=== PATIENT | female | born 1960 | race Caucasian/White ===

== ENCOUNTER 2017-02-22 00:32 | Inpatient (IN) | payer OTHER ==
[~2017-02-22] VITALS: Ht 177.8 cm; Wt 86.2 kg
--- NOTE | 2017-02-22 00:48 | NUR ---
56YO FEMALE TO RM 4 VIA AMB W/CO ABD PAIN, VOMITING "ALL DAY" DENIES ANY DIARRHEA. HX HERNIA SURG 4YRS AGO
--- NOTE | 2017-02-22 00:59 | ED GI/GU/ABDOMINAL COMPLAINT ---
History of Present Illness General Chief Complaint: Abdominal Pain/Flank Pain Stated Complaint: BIBA,ABD PAIN Source: patient, EMS Exam Limitations: clinical condition Allergies Coded Allergies: NO KNOWN ALLERGIES (12/22/12) Reconcile Medications Amoxicillin/Clavulanate Potass (Amox-Clav 875-125 MG Tablet) 875 MG-125 MG TABLET 1 TAB PO Q12 Diverticulitis Take 2 pills a day for 13 days to finish a total of 14 days of antibiotics in and out of hospital Gabapentin (Neurontin) 400 MG CAPSULE 1 CAP PO TID PAIN (Reported) Nebivolol HCl (Bystolic) 10 MG TABLET 1 TAB PO DAILY HTN (Reported) Omeprazole 40 MG CAPSULE.DR 1 CAP PO DAILY GERD (Reported) Oxycodone HCl/Acetaminophen (Percocet 7.5-325 MG Tablet) 7.5 MG-325 MG TABLET 1 TAB PO TID PAIN (Reported) Trazodone HCl 100 MG TABLET 1 TAB PO QPM SLEEP (Reported) Triage Note: 56YO FEMALE TO 4 VIA AMB W/CO ABD PAIN, VOMITING "ALL DAY" DENIES ANY DIARRHEA. HX HERNIA SURG 4YRS AGO Triage Nurses Notes Reviewed? yes ? N Is pt currently ? No HPI: 56-year-old female with history of rheumatoid arthritis on Percocet, history of hiatal hernia repair by Dr. Mccord 4 years ago presents to the ER with chief complaint of abdominal pain which started left lower quadrant 2 days ago. Since that time she has been having bilious emesis. Unable to tolerate any by mouth. I able to keep down her regular medications. Patient states I am so sick. Denies any fever or chills. Last bowel movement was yesterday which was small. (OLINDA JACKMAN,JONNY) Vital Signs & Intake/Output Vital Signs & Intake/Output ED Intake and Output 07/ 0000 07/ 1200 Intake Total 1100 Output Total 650 900 Balance 450 -900 Intake, IV 200 Intake, Oral 900 Number 0 2 Bowel Movements Output, Urine 650 900 Past History Travel History Traveled to [place] past 21 day No Medical History Any Pertinent Medical History? see below for history Cardiovascular: hypertension Gastrointestinal: HERNIA Musculoskeletal: rheumatoid arthritis History of MRSA: No History of VRE: No History of CDIFF: No Pneumonia Vaccine: 05/12/12 Influenza Vaccine: 05/21/13 Surgical History Surgical History: HIATAL HERNIA REPAIR Psychosocial History Who do you live with Patient/Self Services at Home None What is your primary language Swedish Tobacco Use: Refused to answer Family History Hx Contributory? No (OLINDA JACKMAN,JONNY) Review of Systems Review of Systems Constitutional: Denies: chills, fever. EENTM: Reports: no symptoms. Respiratory: Denies: hemoptysis, short of breath. Cardiovascular: Denies: chest pain. GI: Reports: abdominal pain, nausea, vomiting. Genitourinary: Denies: discharge, dysuria. Musculoskeletal: Reports: no symptoms. Skin: Reports: no symptoms. Neurological/Psychological: Reports: no symptoms. Hematologic/Endocrine: Denies: bruising, bleeding, polyuria, polydipsia. Immunologic/Allergic: Denies: splenectomy. All Other Systems: Reviewed and Negative (OLINDA JACKMAN,JONNY) Physical Exam Physical Exam General Appearance: well developed/nourished, alert, awake, anxious, mild distress, moderate distress Head: atraumatic, normal appearance Eyes: Bilateral: normal appearance, PERRL, EOMI. Ears, Nose, Throat, Mouth: hearing grossly normal, moist mucous membrane Respiratory: normal breath sounds, chest non-tender, no respiratory distress Cardiovascular: tachycardia Gastrointestinal: normal bowel sounds, soft, tenderness (LLQ) Extremities: normal range of motion Neurologic/Psych: no motor/sensory deficits, awake, alert, oriented x 3 Skin: normal color, warm/dry (OLINDA JACKMAN,JONNY) Core Measures ACS in differential dx? No Severe Sepsis Present: No Septic Shock Present: No (MALIKA JACKMAN,CHLOE Modi) Progress Differential Diagnosis: bowel obstruction, kidney stone, ovarian cyst, UTI/pyelo Diagnostic Imaging: Viewed by Me: CT Scan. Discussed w/RAD: CT Scan. Radiology Impression: PATIENT: SARAH SHANNON PRESENT AGE: 56 PATIENT ACCOUNT NO: [id number] : 60 LOCATION: [facility] ORDERING PHYSICIAN: JONNY PRAKASH MD SERVICE DATE: 02/22/17 EXAM TYPE: CAT - CT ABD & PELVIS W IV CONTRAST EXAMINATION: CT ABDOMEN AND PELVIS WITH CONTRAST CLINICAL INFORMATION: Left lower quadrant pain. Vomiting for 2 days, bilious emesis COMPARISON: None TECHNIQUE: Multidetector volumetric imaging was performed of the abdomen and pelvis after the IV administration of 95 mL of Optiray 320 intravenous contrast. Sagittal and coronal reformatted images were obtained on the technologist's workstation. DLP: 410.41 mGy-cm FINDINGS: LUNG BASES: Large hiatal hernia. No infiltrate or pleural effusion. LIVER, GALLBLADDER, AND BILIARY TREE: Small scattered hypodensities in liver likely hepatic cysts. No intrahepatic bile duct dilatation. The gallbladder is unremarkable with no evidence of radiopaque gallstones, gallbladder wall thickening, or obvious pericholecystic inflammatory changes. Extrahepatic CBD measures 5 mm. PANCREAS: Unremarkable. SPLEEN: Unremarkable. ADRENAL GLANDS: Unremarkable. KIDNEYS AND URETERS: The kidneys are normal in size, shape, and attenuation. No hydronephrosis, hydroureter, or calculi seen. No perinephric stranding. BLADDER: Unremarkable. GASTROINTESTINAL TRACT: Marked diverticulosis of the left colon and sigmoid. There is mild diffuse bowel wall thickening of the sigmoid colon there is no significant pericolonic edema. Cannot exclude a mild diverticulitis. There is no bowel obstruction. Scattered stool in the colon. The appendix is normal. Small bowel loops are normal. ABDOMINAL WALL: No significant hernia is appreciated. LYMPH NODES: Normal. VASCULAR: Atherosclerotic vascular calcifications in abdomen pelvis. No aneurysm of the aorta. PELVIC VISCERA: Uterus is anteverted. No adnexal abnormality. OSSEOUS STRUCTURES: Mild degenerative spondylosis of the spine. IMPRESSION: 1. Diverticulosis of the colon. Mild bowel wall thickening at the sigmoid colon. There is no significant edema though in the surrounding pericolonic fat. Cannot exclude a mild diverticulitis however. 2. Large hiatal hernia. DICTATED BY: MARYCRUZ BARRIOS MD DATE/TIME DICTATED:02/22/17227 BOILER INSTALLER:CATHY DATE/TIME TRANSCRIBED:02/22/17227 CONFIDENTIAL, DO NOT COPY WITHOUT APPROPRIATE AUTHORIZATION. <Electronically signed in Other Vendor System> SIGNED BY: MARYCRUZ BARRIOS MD 02/22/17236 Initial ED EKG: SINUS @ 66 BPM Hand-Off Endorsed To: MALIKA JACKMAN,CHLOE Modi Endorsed Time: 704 Pending: other (PO CHALLENGE) (JONNY PRAKASH MD) Plan of Care: Orders Procedure Date/time Status Low Fiber Diet 02/23 B Active Discharge Patient 02/23 UNK Active Comments: Patient continues to have severe pain in the left lower quadrant. At this point the patient will be admitted for IV antibiotics for sigmoid diverticulitis. (CHLOE DALY MD) Departure Departure Condition: Stable Clinical Impression Primary Impression: Diverticulitis Referrals: MYRA MURRY MD (PCP/Family) GA ALBERT MD Additional Instructions: TAKE THE CIPRO, FLAGYL AND ZOFRAN DIRECTED. FOLLOW UP WITH DR ALBERT IN THE OFFICE AFTER YOUR COURSE OF ANTIBIOTICS. RETURN SOONER FOR ANY WORSENING SYMPTOMS. Departure Forms: Customer Survey General Discharge Information Prescriptions: Current Visit Scripts Amoxicillin/Clavulanate Potass (Amox-Clav 875-125 MG Tablet) 1 TAB PO Q12 #26 TAB Take 2 pills a day for 13 days to finish a total of 14 days of antibiotics in and out of hospital (JONNY PRAKASH MD) Departure Disposition: STILL A PATIENT Admission Note Spoke With: LAWSON OLSON MD Documentation of Exam: Documentation of any treatments & extenuating circumstances including Concerns Regarding Discharge (functional status, medication knowledge or non-compliance, living conditions, etc.) that warrant an admission rather than observation: [ CLEAR LIQUIDS, IV ABX, GASTROENTEROLOGY CONSULTATION, IV FLUIDS, PAIN CONTROL] (CHLOE DALY MD) CHLOE DALY MD Endorsed Time: 704 Pending: other (PO CHALLENGE) (JONNY PRAKASH MD) Comments: Patient continues to have severe pain in the left lower quadrant. At this point the patient will be admitted for IV antibiotics for sigmoid diverticulitis. (CHLOE DALY MD) Departure Departure Condition: Stable Clinical Impression Primary Impression: Diverticulitis Referrals: MYRA MURRY MD (PCP/Family) GA ALBERT MD Additional Instructions: TAKE THE CIPRO, FLAGYL AND ZOFRAN DIRECTED. FOLLOW UP WITH DR ALBERT IN THE OFFICE AFTER YOUR COURSE OF ANTIBIOTICS. RETURN SOONER FOR ANY WORSENING SYMPTOMS. Departure Forms: Customer Survey General Discharge Information Prescriptions: Current Visit Scripts Ciprofloxacin HCl (Cipro) 1 TAB PO BID #20 TAB Metronidazole (Flagyl) 1 TAB PO 4 TIMES/DAY #40 TAB Ondansetron (Zofran Odt) 1 TAB PO Q6 PRN NAUSEA #20 TAB (JONNY PRAKASH MD) Departure Disposition: STILL A PATIENT Admission Note Spoke With: LAWSON OLSON MD Documentation of Exam: Documentation of any treatments & extenuating circumstances including Concerns Regarding Discharge (functional status, medication knowledge or non-compliance, living conditions, etc.) that warrant an admission rather than observation: [ CLEAR LIQUIDS, IV ABX, GASTROENTEROLOGY CONSULTATION, IV FLUIDS, PAIN CONTROL] (MALIKA JACKMAN,CHLOE Modi)
--- NOTE | 2017-02-22 01:22 | NUR ---
RN WALKING PAST PATIENT ROOM AT THIS TIME, PATIENT YELLED OUT TO RN "HELP ME! I'M DYING." PATIENT REPORTING "BLOOD IN MY VOMIT." VOMIT NOTED BRIGHT YELLOW W/ ONE SMALLER THAN DIME SIZED AREA BRIGHT RED BLOOD. PATIENT AWARE AWAITING MD FAIRCHILD.
[2017-02-22 01:33] LABS: ABSOLUTE BASOPHIL COUNT 0 /CUMM (0.0-0.2); ABSOLUTE EOSINOPHIL COUNT 0 /CUMM (0.0-0.7); ABSOLUTE GRANULOCYTE CT 6.9 /CUMM (1.4-6.5); ABSOLUTE LYMPH COUNT 1.3 /CUMM (1.2-3.4); ABSOLUTE MONOCYTE COUNT 0.2 /CUMM (0.10-0.60); BASOPHIL % 0.2 % (0.0-2.0); EOSINOPHIL % 0 % (0-5); GRANULOCYTE % 82.7 % (42.2-75.2); HEMATOCRIT 43.5 % (37-47); MEAN CORPUSCULAR HGB 30.4 PG (27.0-31.0); MEAN CORPUSCULAR HGB CONC 33.9 G/DL (33.0-37.0); MEAN CORPUSCULAR VOLUME 89.6 FL (81.0-99.0); MEAN PLATELET VOLUME 8.4 FL (7.4-10.4); PLATELET COUNT 258 /CUMM (130-400); RBC DISTRIBUTION WIDTH 14.1 % (11.5-14.5); RED BLOOD CELL CT 4.86 /CUMM (4.20-5.40); WHITE BLOOD CELL COUNT 8.4 /CUMM (4.8-10.8)
--- NOTE | 2017-02-22 01:33 | NUR ---
EVAL BY DR PRAKASH IV MOPRPHINE GIVEN ORDERRED
--- NOTE | 2017-02-22 02:05 | NUR ---
to and from ct
--- NOTE | 2017-02-22 02:37 | CT SCAN REPORT ---
EXAMINATION: CT ABDOMEN AND PELVIS WITH CONTRAST CLINICAL INFORMATION: Left lower quadrant pain. Vomiting for 2 days, bilious emesis COMPARISON: None TECHNIQUE: Multidetector volumetric imaging was performed of the abdomen and pelvis after the IV administration of 95 mL of Optiray 320 intravenous contrast. Sagittal and coronal reformatted images were obtained on the technologist's workstation. DLP: 410.41 mGy-cm FINDINGS: LUNG BASES: Large hiatal hernia. No infiltrate or pleural effusion. LIVER, GALLBLADDER, AND BILIARY TREE: Small scattered hypodensities in liver likely hepatic cysts. No intrahepatic bile duct dilatation. The gallbladder is unremarkable with no evidence of radiopaque gallstones, gallbladder wall thickening, or obvious pericholecystic inflammatory changes. Extrahepatic CBD measures 5 mm. PANCREAS: Unremarkable. SPLEEN: Unremarkable. ADRENAL GLANDS: Unremarkable. KIDNEYS AND URETERS: The kidneys are normal in size, shape, and attenuation. No hydronephrosis, hydroureter, or calculi seen. No perinephric stranding. BLADDER: Unremarkable. GASTROINTESTINAL TRACT: Marked diverticulosis of the left colon and sigmoid. There is mild diffuse bowel wall thickening of the sigmoid colon there is no significant pericolonic edema. Cannot exclude a mild diverticulitis. There is no bowel obstruction. Scattered stool in the colon. The appendix is normal. Small bowel loops are normal. ABDOMINAL WALL: No significant hernia is appreciated. LYMPH NODES: Normal. VASCULAR: Atherosclerotic vascular calcifications in abdomen pelvis. No aneurysm of the aorta. PELVIC VISCERA: Uterus is anteverted. No adnexal abnormality. OSSEOUS STRUCTURES: Mild degenerative spondylosis of the spine. IMPRESSION: 1. Diverticulosis of the colon. Mild bowel wall thickening at the sigmoid colon. There is no significant edema though in the surrounding pericolonic fat. Cannot exclude a mild diverticulitis however. 2. Large hiatal hernia.
--- NOTE | 2017-02-22 03:10 | NUR ---
MOANING IN PAIN STATES "PAIN = 10/10"
--- NOTE | 2017-02-22 03:38 | NUR ---
PATIENT MEDICATED W/ ADDITIONAL 4MG MORPHINE FOR CONTINUED 8/10 ABD PAIN. PHENERGAN INFUSING PER EMAR. TOLERATING WELL. PATIENT RESTING ON STRETCHER, NO VOMITTING NOTED. PATIENT REPORTS "YOU GUYS AREN'T GOING TO SEND ME HOME, RIGHT? I WILL JUST END UP RIGHT BACK HERE." MD PRAKASH AT BEDSIDE, INFORMED PATIENT NO MEDICAL RATIONALE FOR ADMISSION AT THIS POINT IN CARE, CONTINUING TO MONITOR AND WILL CONTINUE TO MONITOR FOR PAIN CONTROL.
--- NOTE | 2017-02-22 04:10 | NUR ---
SLEEPING QUIETLY AT THIS TIME
--- NOTE | 2017-02-22 05:01 | NUR ---
STATES SHE FEELS "MUCH BETTER" SLEEPING SHORT PERIODS.
--- NOTE | 2017-02-22 06:25 | NUR ---
AWAKENED STATES PAIN REMAINS BUT IS BETTER. KELLY NO GIVEN PO.
--- NOTE | 2017-02-22 06:36 | NUR ---
STATE "KELLY NO IS MAKING MY STOMACH PAIN RETURN" DENIES ANY NAUSEA. DR PRAKASH AWARE. PROTONIX IV GIVEN
--- NOTE | 2017-02-22 06:43 | NUR ---
RE DEVORAH BY DR PRAKASH
--- NOTE | 2017-02-22 07:00 | NUR ---
ASSUMED CARE. SLEEPING ON STRETCHER. NS CONTINUES TO INFUSE. Informed waiting has been performed.
[2017-02-22] MEDS ORDERED: CIPRO500 M1 PO (07:04)
[2017-02-22] MEDS ORDERED: FLAGYL500 MG PO (07:05)
[2017-02-22] MEDS ORDERED: ZOFRAN ODT4 M1 PO (07:05)
--- NOTE | 2017-02-22 07:50 | NUR ---
AWAKENED PT, PT STATES SHE IS FEELING BETTER. PROVIDED WATER FOR PO CHALLENGE. Informed waiting has been performed.
--- NOTE | 2017-02-22 08:45 | NUR ---
PT STATES SHE TOLERATED WATER OK, BUT ALSO STATES "MY STOMACH IS STILL KILLING ME". PT AMBULATED TO BATHROOM WITH STEADY GAIT. DR DALY AWARE.
--- NOTE | 2017-02-22 08:48 | NUR ---
DR DALY IN TO REVIEW POC.
--- NOTE | 2017-02-22 09:27 | NUR ---
DR OLSON AT BEDSIDE
--- NOTE | 2017-02-22 09:42 | History & Physical ---
NIKKI VERAS 02/22/17 0942: General Information and HPI MD Statement: I have seen and personally examined SARAH SHANNON and documented this H&P. The patient is a 56 year old F who presented with a patient stated chief complaint of severe left lower quadrant pain.. Source of Information: patient, family Exam Limitations: no limitations, unable to give history History of Present Illness: Patient is a 56-year-old woman with past medical history significant for hypertension, history of GI bleed secondary to large hiatal hernia status post surgical repair by Dr. Mccord ) and colonoscopy, history of rheumatoid arthritis on low-dose prednisone , multiple surgeries including knee and hand presented to the ED for the evaluation of severe left lower quadrant pain for the last 2 days. Patient mentioned that her symptoms were sudden in onset, constant, 7/10 in severity dull in character getting worse. Pain was associated with nausea and bilious vomiting she was unable to tolerate anything orally. Also experienced chills without any fever. Last night patient was very sick and couldn't able to tolerate the pain anymore and came to the ED for further evaluation. Patient also reported loose watery stools without any constipation. Patient denied any shortness of breath chest discomfort palpitations denies any urinary problems. In the ED patient's vitals were stable, CT abdomen and pelvis revealed sigmoid diverticulitis. Patient was given Unasyn, Phenergan and morphine in the ED. Allergies/Medications Allergies: Coded Allergies: NO KNOWN ALLERGIES (12/22/12) Home Med list Gabapentin (Neurontin) 400 MG CAPSULE 1 CAP PO TID PAIN (Reported) Nebivolol HCl (Bystolic) 10 MG TABLET 1 TAB PO DAILY HTN (Reported) Omeprazole 40 MG CAPSULE.DR 1 CAP PO DAILY GERD (Reported) Oxycodone HCl/Acetaminophen (Percocet 7.5-325 MG Tablet) 7.5 MG-325 MG TABLET 1 TAB PO TID PAIN (Reported) Trazodone HCl 100 MG TABLET 1 TAB PO QPM SLEEP (Reported) Past History Travel History Traveled to [place] past 21 day No Medical History Cardiovascular: hypertension Gastrointestinal: HERNIA Musculoskeletal: rheumatoid arthritis History of MRSA: No History of VRE: No History of CDIFF: No Surgical History Surgical History: HIATAL HERNIA REPAIR Past Family/Social History Psychosocial History Services at Home: None Review of Systems Review of Systems Constitutional: Denies: diaphoresis, fever, malaise. EENTM: Denies: blurred vision, double vision, eye pain. Cardiovascular: Denies: chest pain, edema. Respiratory: Denies: cough, hemoptysis, orthopnea. GI: Reports: abdominal pain. Denies: constipation, distention, bowel incontinence. Genitourinary: Denies: dysuria, frequency. Musculoskeletal: Denies: gout, joint pain, joint swelling. Skin: Denies: change in skin color, change in hair/nails, dryness. Exam & Diagnostic Data Last 24 Hrs of Vital Signs/I&O Vital Signs Date Time Temp Pulse Resp B/P B/P Pulse O2 O2 Flow FiO2 Mean Ox Delivery Rate 02/22 1145 99.7 62 16 104/60 97 Room Air 02/22 1045 98.3 59 18 101/61 98 07/05 0844 98.0 58 20 106/56 98 Room Air 07/ 0629 99.0 59 20 112/62 98 Room Air 07/05 0339 99.0 69 18 131/74 96 Room Air 07/ 0051 97 Room Air 07/ 0033 98.8 68 19 170/95 97 Room Air Intake & Output / 1600 07/05 0800 07/05 0000 Intake Total 3000 Output Total Balance 3000 Intake, IV 3000 Patient 190 lb Weight Weight Reported by Patient Measurement Method Physical Exam General Appearance Alert, Oriented X3, No Acute Distress Skin No Rashes, No Breakdown Skin Temp/Moisture Exam: Warm/Dry Sepsis Skin Exam (color): Normal for Ethnicity HEENT Atraumatic, PERRLA Cardiovascular Regular Rate, Normal S1, Normal S2 Lungs Clear to Auscultation Abdomen left lower quardrant pain Neurological Normal Gait, Normal Speech Assessment/Plan Assessment: Patient is a 56-year-old woman with past medical history significant for hypertension, history of GI bleed secondary to large hiatal hernia status post surgical repair by Dr. Mccord ) and colonoscopy, history of rheumatoid arthritis, doing in the knee and hand surgeries presented to the ED for the evaluation of severe left lower quadrant pain for the last 2 days. Vitals on admission to be 98.8, pulse 68, sedimentation rate 19, blood pressure 170/[address] abdomen and pelvis consistent with acute diverticulitis Assessment and plan: Acute diverticulitis * Admit the patient on treatment * Continue with IV hydration with normal saline at the rate of 125 mL per hour * Continue with Unasyn * Cultures 2 * Keep the patient on clear liquid diet. * Zofran as needed for nausea and vomiting. * Moderate to severe pain controlled with Percocet and IV Toradol * If patient remains stable tomorrow we will advance her diet and discharge. History of chronic back and neuropathic pain * Continue home dose of Neurontin and Percocet History of hypertension * Continue home dose of Bystolic. History of insomnia * Continue trazodone at bedtime History of rheumatoid arthritis: * On low-dose prednisone Mild to moderate pain controlled with trazodone and Toradol Due to prophylaxis with subcutaneous Lovenox Patient is full code As Ranked By This Provider Problem List: 1. Diverticulitis Core Measures/Miscellaneous Acute Coronary Syndrome ACS Diagnosis: No Cerebrovascular Accident CVA/TIA Diagnosis: No Congestive Heart Failure CHF Diagnosis: No VTE (View Protocol) VTE Risk Factors: Acute medical illness, Age > 40 [facility] prophylaxis d/t: VTE low risk, No contraindications No VTE Pharm Prophylaxis d/t: VTE low risk, No contraindications VTE Diagnosis: No VTE Type: NONE VTE Confirmed by (Test): NONE Sepsis (View Protocol) Severe Sepsis Present: No Septic Shock Septic Shock Present: No Miscellaneous Documentation Attending Case Discussed With: Dr Muñoz Primary Care Physician: MYRA MURRY MD Patient sees these Specialists not available at this time Level of Patient Care: General Medicine [facility] 1438: Attending MD Review Statement Attending Statement Attending MD Statement: examined this patient, discuss w/resident/PA/LABORATORY COURIER, agreed w/resident/PA/LABORATORY COURIER, reviewed EMR data (avail) Attending Assessment/Plan: 56-year-old female with history of rheumatoid arthritis currently on low-dose prednisone and who recently finished a Medrol Dosepak for a flareup presenting with left lower quadrant pain and CAT scan suggesting mild sigmoid diverticulitis. Unfortunately patient is not able to tolerate by mouth medications secondary to nausea vomiting and her pain is significant that would require inpatient IV antibiotics and pain medications.
--- NOTE | 2017-02-22 09:52 | NUR ---
HOUSESTAFF IN FOR EVAL
[2017-02-22] MEDS ORDERED: PERCOCET 7.5-31 EACH PO (10:07)
[2017-02-22] MEDS ORDERED: NEURONTIN400 M1 PO (10:07)
[2017-02-22] MEDS ORDERED: TRAZODONE HCL100 M1 PO (10:07)
[2017-02-22] MEDS ORDERED: BYSTOLIC10 M1 PO (10:08)
[2017-02-22] MEDS ORDERED: OMEPRAZOLE40 M1 PO (10:08)
--- NOTE | 2017-02-22 10:44 | NUR ---
AWAITING BED ASSIGNMENT.
--- NOTE | 2017-02-22 10:45 | NUR ---
PT TO ROOM 231 BED 1
--- NOTE | 2017-02-22 10:47 | NUR ---
REPORT TO JOSE LAWTON ON 2NA.
--- NOTE | 2017-02-22 11:15 | NUR ---
PT TO FLOOR VIA STRETCHER. ALL PAPERWORK AND BELONGINGS SENT WITH PT. CLINICAL STATUS UNCHANGED.
[2017-02-22 11:45] VITALS: BP 104/60
--- NOTE | 2017-02-22 12:00 | NUR ---
ARRIVED TO FLOOR VIA STRETCHER. AMBULATED SELF FROM STRETCHER TO BED. A & O X 3. VSS. IVF INFUSING VIA HL IN RFA. C/O PAIN 6/10 TO LEFT FLANK. IV TORADOL ADMINISTERED ORDERED. PT ORIENTED TO CALL SYSTEM. WILL MONITOR.
--- NOTE | 2017-02-22 14:15 | Admission Certification ---
Admission Certification Certification Statement - As attending physician, I certify that at the time of - admission, based on clinical presentation, severity of - symptoms, need for further diagnostic testing and - therapeutic interventions, and risk of adverse outcomes - without in-hospital treatment, in my clinical assessment, - this patient requires an acute hospital stay for a minimum - of two nights or longer. I have also considered psychsocial - factors such as support system, advanced age, financial - issues, cognitive issues, and failed out-patient treatments, - past re-admission history, safety of patient, and lack of - compliance as applicable. Specific rationale supporting this admission is: Diverticulitis
[2017-02-22 14:41] VITALS: BP 110/60
--- NOTE | 2017-02-22 16:30 | NUR ---
PT C/O 5/10 ABDOMINAL PAIN AT THIS TIME, NO NAUSEA, REQUESTING PAIN MEDS, NOT DUE FOR IV TORADOL UNTIL 1844, PERCOCET ORDERED BUT PT DOES NOT WISH TO TAKE ANYTHING PO AT THIS TIME. CALL PLACED TO LEAD [employer]XIDE MILL TENDER. AWAITING NEW ORDERS
--- NOTE | 2017-02-22 16:36 | NUR ---
CALL PLACED TO ENTRY LEVEL JAVA DEVELOPER AT [phone] AWAITING FOR PAIN MED ORDERS
--- NOTE | 2017-02-22 16:46 | NUR ---
HAVE NOT RECIEVED ORDERS FOR PAIN MEDS FROM WEDDING CAKE DESIGNER,. CALL PLACED TO MOD. AWAITING RETURN CALL
--- NOTE | 2017-02-22 16:48 | NUR ---
call recieved back from internal combustion engineer at this time, Kiki, stated she will put in pain med order now.
--- NOTE | 2017-02-22 17:14 | NUR ---
SEE EMAR- IV MORPHINE GIVEN AT 1700 FOR ABDOMINAL PAIN, DENIES NAUSEA AT THIS TIME.
--- NOTE | 2017-02-22 18:28 | Patient Discharge Instructions ---
Discharge Instructions General Discharge Information You were seen/treated for: Diverticulitis Special Instructions: 1. Advance diet as tolerated 2. Follow up with PCP within one week 3. If you develop fever, bleeding from rectum or excruciating abdominal pain then return to ED. Diet Continue normal diet: No Recommended Diet: Heart Healthy Activity Activity Self Limited: Yes Acute Coronary Syndrome Inclusion Criteria At DC or during hospital stay patient has or had the following: ACS DIAGNOSIS No Discharge Core Measures Meds if any: Prescribed or Continued at Discharge Meds if any: NOT Prescribed or Continued at Discharge Congestive Heart Failure Inclusion Criteria At DC or during hospital stay patient has or had the following: CHF DIAGNOSIS No Discharge Core Measures Meds if any: Prescribed or Continued at Discharge Meds if any: NOT Prescribed or Continued at Discharge Cerebrovascular accident Inclusion Criteria At DC or during hospital stay patient has or had the following: CVA/TIA Diagnosis No Discharge Core Measures Meds if any: Prescribed or Continued at Discharge Meds if any: NOT Prescribed or Continued at Discharge Venous thromboembolism Inclusion Criteria VTE Diagnosis No VTE Type NONE VTE Confirmed by (Test) NONE Discharge Core Measures - Per Current guidelines, there needs to be overlap - treatment for the first 5 days of Warfarin therapy. - If discharged on Warfarin prior to 5 days of - overlap therapy, the patient will need to be - assessed for post discharge needs including - *Post discharge parental anticoagulation - *Warfarin and/or parental anticoagulation education - *Follow up date to check INR post discharge At least 5 days overlap therapy as Inpatient No Meds if any: Prescribed or Continued at Discharge Note: Overlap Therapy is Warfarin and Anticoagulant Meds if any: NOT Prescribed or Continued at Discharge
[2017-02-22 22:33] VITALS: BP 120/80
[2017-02-23 06:39] VITALS: BP 150/82
[2017-02-23 08:21] LABS: ABSOLUTE BASOPHIL COUNT 0 /CUMM (0.0-0.2); ABSOLUTE EOSINOPHIL COUNT 0.1 /CUMM (0.0-0.7); ABSOLUTE GRANULOCYTE CT 3.5 /CUMM (1.4-6.5); ABSOLUTE LYMPH COUNT 2.5 /CUMM (1.2-3.4); ABSOLUTE MONOCYTE COUNT 0.4 /CUMM (0.10-0.60); BASOPHIL % 0.5 % (0.0-2.0); EOSINOPHIL % 0.9 % (0-5); GRANULOCYTE % 54.2 % (42.2-75.2); MEAN CORPUSCULAR HGB 30.8 PG (27.0-31.0); MEAN CORPUSCULAR HGB CONC 33.3 G/DL (33.0-37.0); MEAN CORPUSCULAR VOLUME 92.5 FL (81.0-99.0); MEAN PLATELET VOLUME 8.4 FL (7.4-10.4); PLATELET COUNT 192 /CUMM (130-400); RBC DISTRIBUTION WIDTH 14.3 % (11.5-14.5); RED BLOOD CELL CT 4.12 /CUMM (4.20-5.40); WHITE BLOOD CELL COUNT 6.5 /CUMM (4.8-10.8)
--- NOTE | 2017-02-23 08:52 | PN- Housestaff ---
Subjective Follow-up For: Diverticulitis Subjective: I saw and examined the patient this AM. She states she is doing better than the day before. Still has some abdominal pain. Rates it a 5/10 but improves with pain meds. Is tolerating PO intake w/ no n/v/constipation/diarrhea. Denies fever /chills. Denies SOB, chest pain. Review of Systems Constitutional: Denies: see HPI. Objective Last 24 Hrs of Vital Signs/I&O Vital Signs Date Time Temp Pulse Resp B/P B/P Pulse O2 O2 Flow FiO2 Mean Ox Delivery Rate 02/23 0639 98.0 52 16 150/82 98 Room Air 02/22 2233 98.3 53 18 120/80 97 Room Air Intake & Output 02/23 1600 02/23 0800 02/23 0000 Intake Total 1100 1000 Output Total 650 900 Balance 450 -900 1000 Intake, IV 200 1000 Intake, Oral 900 Number 0 2 Bowel Movements Output, Urine 650 900 Physical Exam General Appearance: Alert, Oriented X3, Cooperative, No Acute Distress Cardiovascular: Regular Rate, Normal S1, Normal S2 Lungs: Clear to Auscultation Abdomen: Normal Bowel Sounds, Soft, mild tenderness to palpation of LLQ Assessment/Plan Assessment: Patient is a 56-year-old female with PMH of hypertension, history of GI bleed secondary to large hiatal hernia status post surgical repair by Dr. Mccord) and colonoscopy, history of rheumatoid arthritis, doing in the knee and hand surgeries presented presented to ED with severe LLQ pain x2 days admitted for suspected diverticulitis seen on CT. Pt admitted to general medicine floor for management of the followin. Acute diverticulitis: Resolving * Pt was given IV hydration and started on Unasyn in ED * Switched pt to PO Augmentin today. Will receive a 14 day course. * Pt's pain controlled with percocet and tramadol PO today * Advance diet as tolerated * Pt afebrile, WBC: 6.5, with mild abdominal pain, tolerating PO intake * Will discharge today. 2. History of chronic back and neuropathic pain * Continue home dose of Neurontin and Percocet 3. History of hypertension * Continue home dose of Bystolic. 4. History of insomnia * Continue trazodone at bedtime 5. History of rheumatoid arthritis: * On low-dose prednisone Mild to moderate pain controlled with trazodone and Toradol Code: Full DVT PPx: Lovenox Problem List: 1. Diverticulitis Pain Ratin Pain Location: abdomin Pain Goal: Pain 4 or less Pain Plan: percocet tramadol Tomorrow's Labs & Rationales: none
--- NOTE | 2017-02-23 08:53 | Discharge Summary ---
Visit Information Visit Dates Admission Date: 02/22/17 Discharge Date: 02/23/17 Hospital Course Course Attending Physician: LAWSON OLSON MD Primary Care Physician: MYRA MURRY MD Hospital Course: Pt is a 56 y/o female PMH of hypertension, history of GI bleed secondary to large hiatal hernia status post surgical repair by Dr. Mccord) and colonoscopy, history of rheumatoid arthritis, doing in the knee and hand surgeries presented presented to ED with severe LLQ pain x2 days admitted for suspected diverticulitis seen on CT. In the ED: Vitals on admission to be 98.8, pulse 68, sedimentation rate 19, blood pressure 170/95 on room air. Received IV Fluids, Unasyn, Phenergan and morphine. CT of abdomen sigmoid diverticulitis: Pt treated for the following problems: 1. Acute diverticulitis: seen on CT correlated with clinical status with LLQ pain. Abdominal pain improved with IV hydration and pain medication. Pt has been afebrile, normotensive through duration of admission with normal WBC. Pt was discharged on PO Augmentin for 14 day course and pain control on percocet and to follow up with primary care provider and GI specialist. 2. History of chronic back and neuropathic pain * Continue home dose of Neurontin and Percocet 3. History of hypertension * Continue home dose of Bystolic. 4. History of insomnia * Continue trazodone at bedtime 5. History of rheumatoid arthritis: * On low-dose prednisone. Continue home regimen and follow up with PCP. Allergies: Coded Allergies: NO KNOWN ALLERGIES (12/22/12) Disposition Summary Disposition Principal Diagnosis: Acute diverticulitis Additional Diagnosis: none Discharge Disposition: home or self care Discharge Instructions General Discharge Information Code Status: Full Code Patient's Diet: Advance as tolerated to full, regular diet Patient's Activity: Self limited Follow-Up Instructions/Appts: 1. Advance diet as tolerated 2. Follow up with PCP within one week 3. If you develop fever, bleeding from rectum or excruciating abdominal pain then return to ED. Medications at Discharge Discharge Medications: Continue taking these medications: Gabapentin (Neurontin) 400 MG CAPSULE 1 Capsule ORAL THREE TIMES DAILY Comments: NOT GIVEN IN HOSPITAL Trazodone HCl (Trazodone HCl) 100 MG TABLET 1 Tablet ORAL Every night Comments: Last Taken:02/22/17 Time: 2100 Oxycodone HCl/Acetaminophen (Percocet 7.5-325 MG Tablet) 7.5 MG-325 MG TABLET 1 Tablet ORAL THREE TIMES DAILY Comments: Last Taken:02/23/17 Time: 0800AM Nebivolol HCl (Bystolic) 10 MG TABLET 1 Tablet ORAL DAILY Comments: Last Taken: 02/23/17 Time: 0800AM Omeprazole (Omeprazole) 40 MG CAPSULE.DR 1 Capsule ORAL DAILY Comments: NOT GIVEN Start taking the following new medications: Amoxicillin/Clavulanate Potass (Amox-Clav 875-125 MG Tablet) 875 MG-125 MG TABLET 1 Tablet ORAL EVERY 12 HOURS Qty = 26 No Refills Instructions: Take 2 pills a day for 13 days to finish a total of 14 days of antibiotics in and out of hospital Comments: NOT GIVEN Copies To: GA ALBERT MD
--- NOTE | 2017-02-23 09:23 | PN- Att Addend ---
Attending Addendum Attending Brief Note Patient is tolerating oral diet and has moderate left lower quadrant pain. She had bowel movements this morning and last night. General Appearance: Alert, No Acute Distress Skin: Grossly normal HEENT: PEERLA Neck: Supple, No JVD Cardiovascular: Regular Rate, Normal S1, Normal S2, No Murmurs Lungs: Clear to Auscultation, Normal Air Movement Abdomen: Sluggish bowel sounds, left lower quadrant tenderness no guarding Neurological: Normal Speech, Strength at 5/5 X4 Ext, Cranial Nerves 3-12 NL, Reflexes 2+ Extremities: No Clubbing, No Cyanosis, No Edema Vascular: Normal Pulses Assessment Patient symptoms have responded to IV antibiotics appropriately now tolerating oral diet and having bowel movements. She is currently on her usual home pain meds regimen. We will advance diet and if she tolerates per plan discharge later today. Plan Regular diet Continue home dose pain regimen Switch to Augmentin for total 14 days Continue other home medications Current Medications Sig/James Start time Last Medication Dose Route Stop Time Status Admin Acetaminophen 650 MG Q6P PRN 02/22 0945 AC PO Acetaminophen 1,000 MG Q6 PRN 02/22 0945 DC IV Ampicillin Sodium/ 1,500 MG Q6 02/22 1130 AC 02/23 Sulbactam Sodium IV 0539 Sodium Chloride 100 ML Ampicillin Sodium/ 3,000 MG ONCE ONE 02/22 900 DC 02/22 Sulbactam Sodium IV 02/22 09 0910 Sodium Chloride 100 ML Enoxaparin Sodium 0 .STK-MED ONE 02/22 1007 DC SC Enoxaparin Sodium 40 MG DAILY 02/22 1000 AC 02/23 SC 0757 Gabapentin 400 MG TID 02/22 1256 AC PO Ketorolac 30 MG .STK-MED ONE 02/22 2058 DC Tromethamine IM 02/22 2059 Ketorolac 15 MG Q6P PRN 02/22 0945 DC 02/23 Tromethamine IV 0354 Morphine Sulfate 2 MG Q6P PRN 02/22 1700 DC 02/22 IV 1657 Nebivolol 10 MG DAILY 02/23 1000 AC 02/23 PO 0757 Omeprazole 40 MG DAILY AC 02/23 0700 AC 02/23 PO 0635 Ondansetron HCl 4 MG Q8P PRN 02/22 1245 AC PO Oxycodone/ 1 TAB Q6P PRN 02/22 1145 AC 02/23 Acetaminophen PO 0757 Promethazine HCl 12.5 MG ONCE ONE 02/22 1245 DC IV 02/22 1246 Sodium Chloride 1,000 ML Q8H 02/22 0945 DC 02/23 IV 0355 Tramadol HCl 50 MG Q4 PRN 02/23 0845 AC PO Trazodone HCl 100 MG QPM 02/22 2200 AC 02/22 PO 2059 Laboratory Tests 02/23 650 Chemistry Sodium (137 - 145 mmol/L) 139 Potassium (3.5 - 5.1 mmol/L) 3.8 Chloride (98 - 107 mmol/L) 111 H Carbon Dioxide (22 - 30 mmol/L) 22 Anion Gap (5 - 16) 6 BUN (7 - 17 mg/dL) 9 Creatinine (0.5 - 1.0 mg/dL) 0.6 Estimated GFR (>60 ml/min) > 60 BUN/Creatinine Ratio (7 - 25 %) 15.0 Hematology CBC w Diff Pending WBC Pending RBC Pending Hgb Pending Hct Pending MCV Pending MCH Pending RDW Pending Plt Count Pending MPV Pending Gran % Pending Lymphocytes % Pending Monocytes % Pending Eosinophils % Pending Basophils % Pending Absolute Granulocytes Pending Absolute Lymphocytes Pending Absolute Monocytes Pending Absolute Eosinophils Pending Absolute Basophils Pending PUBS MCHC Pending Vital Signs Date Time Temp Pulse Resp B/P B/P Pulse O2 O2 Flow FiO2 Mean Ox Delivery Rate 02/23 639 98.0 52 16 150/82 98 Room Air 02/22 2233 98.3 53 18 120/80 97 Room Air 02/22 1441 99.6 62 16 110/60 97 Room Air 02/22 1145 99.7 62 16 104/60 97 Room Air 02/22 1045 98.3 59 18 101/61 98
[2017-02-23 09:24] LABS: HEMATOCRIT 38.1 % (37-47)
[2017-02-23] MEDS ORDERED: AMOX-CLAV 875-1 EACH PO ×2 (10:58→13:30)
== END 2017-02-23 14:15 | DRG 392 ==
LOC: ERH 00:32 → 2NA 09:06 → ERHI 09:06 → ENRESERV 10:41 → ENTRNSPT 10:50 → EDTRNSPT 11:13 → EDTRNSPTSTS 11:13 → 2NA 11:17 → CMPTRNSPT 11:42 → ENPENDDIS 02-23 13:39 → 2NA 02-23 14:15
PROVIDERS: Emergency Medicine; Student in an Organized Health Care Education/Training Program; ADMIT Internal Medicine
DX: K57.92 Diverticulitis of intestine, part unspecified, without perforation or abscess without bleeding (principal); G62.9 Polyneuropathy, unspecified; I10 Essential (primary) hypertension; G89.29 Other chronic pain; M54.9 Dorsalgia, unspecified; M06.9 Rheumatoid arthritis, unspecified; G47.00 Insomnia, unspecified
CPT/HCPCS: 2NAP; 74177; 80307; 81001; 82436; 87040; 93005; 93010; 96361; 96365; 96375; J0131; J1650; J1885; J2270; J2405; J2550; J3101

== ENCOUNTER 2017-11-27 12:49 | Emergency (ER) | payer OTHER ==
[~2017-11-27] VITALS: Ht 175.3 cm; Wt 81.6 kg
[~2017-11-27 12:49] MED LIST: AMOX-CLAV 875-1 EACH PO; BYSTOLIC10 M1 PO; CIPRO500 M1 PO; FLAGYL500 MG PO; NEURONTIN400 M1 PO; OMEPRAZOLE40 M1 PO; PERCOCET 7.5-31 EACH PO; TRAZODONE HCL100 M1 PO; ZOFRAN ODT4 M1 PO
[2017-11-27 12:58] VITALS: BP 157/89
[2017-11-27] MEDS ORDERED: REGLAN10 M1 PO (20:28)
[2017-11-27] MEDS ORDERED: LEVSIN0.125 M1 PO (20:28)
== END 2017-11-27 14:00 | disposition admitted as inpatient to this hospital (09) ==
LOC: ERH 12:49
DX: R10.32 Left lower quadrant pain (principal); M54.5 Low back pain
CPT/HCPCS: J1885; J2405